=== PATIENT | female | born 1970 | race Caucasian/White ===

== ENCOUNTER 2023-12-24 16:07 | Emergency (ER) | payer SELFPAY ==
[2023-12-24] MEDS ORDERED: Ketorolac Tromethamine 30 MG (1 mL) VIAL ONE (17:34)
== END 2023-12-24 17:57 | disposition home or self-care (01) ==
LOC: ERS 16:07
DX: M48.061 Spinal stenosis, lumbar region without neurogenic claudication (principal); G89.29 Other chronic pain
CPT/HCPCS: 96372; 99283; J1885